=== PATIENT | female | born 1955 | race Asian ===

== ENCOUNTER 2017-12-18 13:34 | Outpatient (CLI) | payer OTHER | END 2017-12-18 22:02 | disposition home or self-care (01) | LOC: RAD 13:34 | DX: M25.562 Pain in left knee (principal) ==

== ENCOUNTER 2018-05-29 15:09 | Outpatient (CLI) | payer BC | END 2018-05-29 19:46 | disposition home or self-care (01) | LOC: MAMMO 15:09 | DX: Z12.31 Encounter for screening mammogram for malignant neoplasm of breast (principal) ==

== ENCOUNTER 2019-04-10 13:26 | Emergency (ER) | payer BC ==
[~2019-04-10] VITALS: Ht 149.9 cm; Wt 85.3 kg
[2019-04-10 14:12] VITALS: BP 135/63; TEMP 98.6
== END 2019-04-10 14:12 | disposition home or self-care (01) ==
LOC: ED 13:26
DX: T63.461A Toxic effect of venom of wasps, accidental (unintentional), initial encounter (principal); H93.8X2 Other specified disorders of left ear
CPT/HCPCS: 99282

== ENCOUNTER 2019-06-02 05:07 | Outpatient (CLI) | payer BC ==
[2019-06-02 05:40] LABS: PLATELET COUNT 278 K/uL (152-353)
[2019-06-02 06:06] LABS: POTASSIUM 3.7 mmol/L (3.6-5.2)
== END 2019-06-02 20:12 | disposition home or self-care (01) ==
LOC: MAMMO 05:07
PROVIDERS: Nurse Practitioner Family
DX: Z12.31 Encounter for screening mammogram for malignant neoplasm of breast (principal); E11.9 Type 2 diabetes mellitus without complications; E78.2 Mixed hyperlipidemia; I10 Essential (primary) hypertension; E79.0 Hyperuricemia without signs of inflammatory arthritis and tophaceous disease; Z79.899 Other long term (current) drug therapy
CPT/HCPCS: 80053; 80061; 81000; 83036; 84550; 85027

== ENCOUNTER 2020-05-04 10:21 | Emergency (ER) | payer BC ==
[~2020-05-04] VITALS: Ht 149.9 cm; Wt 85.3 kg
[2020-05-04 10:31] VITALS: BP 206/84; TEMP 100
== END 2020-05-04 11:19 | disposition home or self-care (01) ==
LOC: ED 10:21
DX: S00.83XA Contusion of other part of head, initial encounter (principal); S09.8XXA Other specified injuries of head, initial encounter; W10.8XXA Fall (on) (from) other stairs and steps, initial encounter; Y92.89 Other specified places as the place of occurrence of the external cause
CPT/HCPCS: 99283

== ENCOUNTER 2022-02-14 09:42 | Outpatient (CLI) | payer BC, OTHER | END 2022-02-14 18:53 | disposition home or self-care (01) | LOC: MAMMO 09:42 | PROVIDERS: ATTEND Nurse Practitioner Family | DX: Z12.31 Encounter for screening mammogram for malignant neoplasm of breast (principal) ==

== ENCOUNTER 2022-03-06 17:14 | Outpatient (CLI) | payer BC, OTHER | END 2022-03-06 19:14 | disposition home or self-care (01) | LOC: US 17:14 | PROVIDERS: ATTEND Nurse Practitioner Family | DX: R10.11 Right upper quadrant pain (principal); R10.31 Right lower quadrant pain | CPT/HCPCS: 36415; 82565; 84520; Q9963 ==

== ENCOUNTER 2022-12-12 14:30 | Outpatient (CLI) | payer BC, OTHER | END 2022-12-12 19:01 | disposition home or self-care (01) | LOC: RAD 14:30 | PROVIDERS: ATTEND Internal Medicine | DX: M25.551 Pain in right hip (principal); M54.59 Other low back pain ==

== ENCOUNTER 2022-12-13 06:14 | Outpatient (CLI) | payer BC, OTHER ==
[2022-12-13 06:49] LABS: PLATELET COUNT 253 K/uL (152-353)
== END 2022-12-13 17:00 | disposition home or self-care (01) ==
LOC: LABW 06:14
PROVIDERS: ATTEND Internal Medicine
DX: Z00.00 Encounter for general adult medical examination without abnormal findings (principal); I10 Essential (primary) hypertension; E78.2 Mixed hyperlipidemia; E79.0 Hyperuricemia without signs of inflammatory arthritis and tophaceous disease; E55.9 Vitamin D deficiency, unspecified
CPT/HCPCS: 36415; 80053; 80061; 82306; 82652; 83036; 84439; 84443; 84481; 84550; 85027

== ENCOUNTER 2023-02-20 09:16 | Outpatient (CLI) | payer BC, OTHER | END 2023-02-20 19:56 | disposition home or self-care (01) | LOC: MAMMO 09:16 | PROVIDERS: ATTEND Internal Medicine | DX: Z12.31 Encounter for screening mammogram for malignant neoplasm of breast (principal) ==

== ENCOUNTER 2023-03-20 06:27 | Emergency (ER) | payer BC, OTHER ==
[~2023-03-20] VITALS: Ht 149.9 cm; Wt 88.5 kg
[2023-03-20 06:28] VITALS: BP 172/70; TEMP 97.9
[2023-03-20 07:20] LABS: PLATELET COUNT 271 K/uL (152-353)
[2023-03-20 07:21] LABS: POTASSIUM 3.7 mmol/L (3.6-5.2)
== END 2023-03-20 07:47 | disposition home or self-care (01) ==
LOC: ED 06:27
PROVIDERS: Family Medicine
DX: R10.9 Unspecified abdominal pain (principal); S39.011A Strain of muscle, fascia and tendon of abdomen, initial encounter
CPT/HCPCS: 36415; 80053; 81002; 85027; 96374; 99284; J1885